=== PATIENT | male | born 1970 | race Two or more races ===

== ENCOUNTER 2024-03-01 13:30 | Outpatient (RCR) | payer MEDICAID, SELFPAY ==
--- NOTE | 2024-02-28 14:42 | PT.ODAYNRPT ---
PT Outpatient Daily Note OP Daily Note Outpatient Physical Therapy Treatment Date: 02/28/24 Visit Reasons: Left shoulder surgery Subjective: Pt reports L shoulder is doing better, flexibility is improving. Objective: Please see flow sheet for ther ex list. Assessment: Progressing strengthening interventions and added OH press exercise to simulate functional reach. Plan: Continue with POC. Length of Time (minutes) of Treatment: 30 Minutes Procedure Charges Therapeutic Exercise 30 minutes: Yes
--- NOTE | 2024-03-01 14:09 | PT.ODAYNRPT ---
PT Outpatient Daily Note OP Daily Note Outpatient Physical Therapy Treatment Date: 03/01/24 Visit Reasons: Left shoulder surgery Subjective: Pt reports L shoulder is doing better but strength is not where he would like. Objective: Please see flow sheet for ther ex list. Assessment: Added wall push ups exercise to simulate weight bearing on B UE for functional strengthening. Plan: Assess for note. Length of Time (minutes) of Treatment: 30 Minutes Procedure Charges Therapeutic Exercise 30 minutes: Yes
== END 2024-03-24 23:59 | disposition home or self-care (01) ==
LOC: CPTX 13:30
PROVIDERS: PCP Nurse Practitioner; Referring Provider Nurse Practitioner; Visit Provider Nurse Practitioner
DX: M25.512 Pain in left shoulder (principal); Z98.890 Other specified postprocedural states
CPT/HCPCS: 97110

== ENCOUNTER 2024-03-26 13:38 | Outpatient (RCR) | payer MEDICAID, SELFPAY ==
--- NOTE | 2024-03-26 16:34 | PT.ODS1RPT ---
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 Pt has full AROM and can reach OH x10 to meet those goals. He has 4-/5 strength in all planes and would benefit from additional visits x6 to improve strength to at least 4/5. Plan: Request additional visits x6 to improve strength to 4/5. Extend POC to 30 visits and cert dates to 05/27/24 Procedure Charges Therapeutic Exercise 30 minutes: Yes
== END 2024-04-24 23:59 | disposition home or self-care (01) ==
LOC: CPTX 13:38
PROVIDERS: PCP Nurse Practitioner; Referring Provider Nurse Practitioner; Visit Provider Nurse Practitioner
DX: M25.512 Pain in left shoulder (principal); S43.432D Superior glenoid labrum lesion of left shoulder, subsequent encounter; X58.XXXD Exposure to other specified factors, subsequent encounter
CPT/HCPCS: 97110

== ENCOUNTER 2024-05-07 07:51 | Outpatient (RCR) | payer MEDICAID, SELFPAY ==
--- NOTE | 2024-05-07 08:53 | PT.ODS1RPT ---
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 Pt is ready to D/C from therapy. Objective: Objective: L shoulder AROM: Full and painfree into FF, abd and ER Strength: FF: 4/5 Abd: 4/5 Assessment: Pt has attended 25 therapy sessions with good improvement to meet ROM goals. Pt has full AROM and can reach OH x10 to meet those goals. 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 Plan: D/C with [facility] Procedure Charges Therapeutic Exercise 30 minutes: Yes
== END 2024-05-25 23:59 | disposition home or self-care (01) ==
LOC: CPTX 07:51
PROVIDERS: PCP Nurse Practitioner; Referring Provider Nurse Practitioner; Visit Provider Nurse Practitioner
DX: M25.512 Pain in left shoulder (principal); S43.432D Superior glenoid labrum lesion of left shoulder, subsequent encounter; X58.XXXD Exposure to other specified factors, subsequent encounter
CPT/HCPCS: 97110